=== PATIENT | male | born 1990 | race Caucasian/White ===

== ENCOUNTER 2017-03-30 13:41 | Emergency (ER) | payer BC ==
[2017-03-30] MEDS ORDERED: Cyclobenzaprine 10 MG Tab PO ONE (13:50)
[2017-03-30] MEDS ORDERED: Acetaminophen/HYDROcodone 325-5 MG Tab PO ONE (13:50)
[2017-03-30 13:51] VITALS: BP 123/82
[2017-03-30] MEDS ORDERED: Ketorolac 60 MG/2 ML SDV IM ONE (13:51)
--- NOTE | 2017-03-30 13:55 | EDM.PDOC ---
ED HPI GENERAL MEDICAL PROBLEM - General Stated Complaint: R LEG INJURY Time Seen by Provider: 03/30/17 13:45 Source of Information: Reports: Patient History Limitations: Reports: No Limitations - History of Present Illness INITIAL COMMENTS - FREE TEXT/NARRATIVE: Patient is a 21-year-old male presents to ED complaining of right groin pain. Patient states while riding a horse the horse started to eng and the patient's squeezed legs harder against the saddle. Upon getting off of the horse after it settled down he noticed increased pain to his right groin worsened with ambulation and any type of movement of his right leg. States pain has been constant moderate in severity. Denies landing on the saddle horn. Denies any pain to his testicles, abdomen, or remaining parts of lower extremity. Onset: Today, Sudden Duration: Constant, Waxing/Waning Location: Reports: Lower Extremity, Right Quality: Reports: Ache, Dull, Throbbing Severity: Moderate Improves with: Reports: None Worsens with: Reports: Movement Context: Reports: Trauma Associated Symptoms: Reports: No Other Symptoms Treatments [employer]: Reports: Other (see below) (none stated) Right Groin Pain Score (Numeric/FACES): 1 - Related Data Allergies Allergy/AdvReac Type Severity Reaction Status Date / Time cefaclor [[facility]] Allergy Hives Verified 03/30/17 14:13 Home Meds: Home Meds Acetaminophen/HYDROcodone [[place] 325-5 MG] 1 tab PO Q6H PRN #10 tablet 03/30/17 [Rx] Aspirin [Halfprin] 81 mg PO DAILY 03/30/17 [History] Cetirizine [ZyrTEC] 10 mg PO DAILY 03/30/17 [History] Cyclobenzaprine [Flexeril] 10 mg PO BID PRN #10 tablet 03/30/17 [Rx] Insulin Pump Cartridge [T:Flex] 0 unit INJECT ASDIRECTED 03/30/17 [History] Lisinopril 2.5 mg PO DAILY 03/30/17 [History] Review of Systems - Review of Systems Review Of Systems: See Below GI/Abdominal: Denies: Abdominal Pain, Diarrhea, Nausea, Vomiting Genitourinary: Reports: No Symptoms Musculoskeletal: Denies: Neck Pain, Back Pain Skin: Denies: Bruising Neurological: Reports: Difficulty Walking. Denies: Numbness, Tingling ED EXAM, GENERAL - Physical Exam Exam: See Below Exam Limited By: No Limitations General Appearance: Alert, WD/WN, No Apparent Distress Eye Exam: Bilateral Eye: PERRL Ears: Hearing Grossly Normal Nose: Normal Inspection Throat/Mouth: Normal Voice, No Airway Compromise Neck: Normal Inspection, Supple Respiratory/Chest: No Respiratory Distress, Lungs Clear, Normal Breath Sounds, No Accessory Muscle Use, Chest Non-Tender Cardiovascular: Normal Peripheral Pulses, Regular Rate, Rhythm Peripheral Pulses: 2+: Radial (R) GI/Abdominal: Normal Bowel Sounds, Soft, Non-Tender, No Organomegaly, No Distention Back Exam: Normal Inspection, Full Range of Motion. No: Paraspinal Tenderness, Vertebral Tenderness Extremities: Normal Inspection, Non-Tender, No Pedal Edema, Normal Capillary Refill, Limited Range of Motion (with flexion/ext of right lower extremity at the hip. No pain with passive range of motion. All pain is associated with firing muscles. no swelling,bruising, or any othercomplaints. ). No: Joint Swelling Neurological: Alert, Oriented, CN II-XII Intact, Normal Cognition, No Motor/ Sensory Deficits Psychiatric: Normal Affect, Normal Mood Skin Exam: Warm, Dry, Normal Color Course - Vital Signs Last Recorded V/S: Last Vital Signs Temp 96.8 F 03/30/17 13:49 Pulse 65 03/30/17 13:49 Resp 20 03/30/17 13:49 BP 123/82 03/30/17 13:49 Pulse Ox 100 03/30/17 13:49 - Orders/Labs/Meds Orders: Active Orders 24 hr Category Date Time Status Blood Glucose Check, Bedside [RC] ONETIME Care 03/30/17 13:55 Active Pelvis 1V or 2V [CR] Stat Exams 03/30/17 13:50 Taken Labs: Laboratory Tests 03/30/17 03/30/17 Range/Units 13:51 15:04 POC Glucose 296 H (70-105) mg/dL Urine Color Yellow (Yellow) Urine Appearance Clear (Clear) Urine pH 6.0 (5.0-8.0) Ur Specific [place] 1.020 (1.005-1.030) Urine Protein Trace H (Negative) Urine Glucose (UA) 2+ H (Negative) Urine Ketones Negative (Negative) Urine Occult Blood Negative (Negative) Urine Nitrite Negative (Negative) Urine Bilirubin Negative (Negative) Urine Urobilinogen 0.2 (0.2-1.0) Ur Leukocyte Esterase Negative (Negative) Urine RBC Not seen (0-5) /hpf Urine WBC Not seen (0-5) /hpf Ur Epithelial Cells Not seen (0-5) /hpf Urine Bacteria Many H (FEW) /hpf Urine Mucus Few (FEW) /hpf Meds: Medications Discontinued Medications Generic Name Dose Route Start Last Admin Trade Name Freq PRN Reason Stop Dose Admin Hydrocodone Bitart/Acetaminophen 1 tab 03/30/17 13:50 03/30/17 14:05 [place] 325-5 Mg PO 03/30/17 13:51 1 tab ONETIME ONE Administration Cyclobenzaprine HCl 10 mg 03/30/17 13:50 03/30/17 14:05 Flexeril PO 03/30/17 13:51 10 mg ONETIME ONE Administration Ketorolac Tromethamine 60 mg 03/30/17 13:51 03/30/17 14:05 Toradol IM 03/30/17 13:52 60 mg ONETIME ONE Administration - Re-Assessments/Exams Free Text/Narrative Re-Assessment/Exam: Ordered [place] 325 p.o. x1, Flexeril 10 mg p.o. x1, Toradol 60 mg IM, and UA. In addition we'll obtain a pelvis x-ray as well. At this point believe this is more likely muscle-related with no pain with passive range of motion. X-ray of the pelvis did not reveal any acute bony abnormalities. This was reviewed with Dr. Bernal. Final interpretation pending. 03/30/17 15:38 UA revealed no concerning findings. Reassessment, pain has drastically improved. Patient is ready to be discharged home. Discharge instructions as documented. Departure - Departure Time of Disposition: 15:41 Disposition: Home, Self-Care 01 Condition: good Clinical Impression: Strain of muscle of right groin region - Discharge Information Prescriptions: Acetaminophen/HYDROcodone [[place] 325-5 MG] 1 tab PO Q6H PRN #10 tablet PRN Reason: Pain (Severe 7-10) Cyclobenzaprine [Flexeril] 10 mg PO BID PRN #10 tablet PRN Reason: Spasms Instructions: Pain Medicine Instructions, [id number], Muscle Strain, Easy-to- Read Referrals: Shelly Kim NP [Primary Care Provider] - Forms: ED Department Discharge Additional Instructions: As discussed pelvic x-ray did not elicit any Acute bony abnormalities. Examination consistent with right groin strain. Treatment is symptomatic care only including: Ibuprofen 600 mg every 6 hours and Tylenol 650 mg every 6 hrs in alternating fashion for pain. Flexerial 10mg twice a day as needed for muscle spasms. For severe pain take norco 1 tab every 6 hours as needed. No driving or operating heavy equipment today and while taking norco and flexeril. See your PCP in one to two weeks if no improvements. Return to the E.D. for any new or worsening symptoms. Refrain from any activities that cause worsening pain. Utilize ice as needed for discomfort as well. - My Orders Last 24 Hours: My Active Orders 03/30/17 13:50 Pelvis 1V or 2V [CR] Stat 03/30/17 13:55 Blood Glucose Check, Bedside [RC] ONETIME - Assessment/Plan Last 24 Hours: My Active Orders 03/30/17 13:50 Pelvis 1V or 2V [CR] Stat 03/30/17 13:55 Blood Glucose Check, Bedside [RC] ONETIME
--- NOTE | 2017-04-01 11:13 | CR ---
Pelvis: AP view of the pelvis was obtained. Comparison: No previous study. Joint spaces within both hips are maintained. Sacroiliac joints are within normal limits. No fracture or other abnormality is appreciated. Impression: 1. No acute abnormality is identified on AP pelvis study. Diagnostic code #1
== END 2017-03-30 15:50 | disposition home or self-care (01) ==
LOC: JD.ED 13:41
DX: S39.011A Strain of muscle, fascia and tendon of abdomen, initial encounter (principal); Z79.82 Long term (current) use of aspirin; Z79.899 Other long term (current) drug therapy; Z88.1 Allergy status to other antibiotic agents; X58.XXXA Exposure to other specified factors, initial encounter; Y93.52 Activity, horseback riding
CPT/HCPCS: 72170; 81001; 82962; 96372; 99284; A9270; J1885; 99283